=== PATIENT | male | born 1995 | race Caucasian/White ===

== ENCOUNTER 2017-10-19 17:22 | Emergency (ER) | payer OTHER ==
[~2017-10-19] VITALS: Ht 175.3 cm; Wt 68.0 kg
[2017-10-19 17:31] VITALS: BP 144/81
[2017-10-19] MEDS ORDERED: BACTRIM DS TAB1 EACH PO (17:42)
[2017-10-19] MEDS ORDERED: KEFLEX500 M1 PO (17:42)
== END 2017-10-19 17:47 | disposition home or self-care (01) ==
LOC: M.ERS 17:22
DX: L03.116 Cellulitis of left lower limb (principal)